=== PATIENT | female | born 1995 | race Caucasian/White ===

== ENCOUNTER 2017-10-12 14:00 | Outpatient (RCR) | payer BC | END 2017-12-01 | disposition home or self-care (01) | LOC: WSST | DX: J38.2 Nodules of vocal cords (principal) ==

== ENCOUNTER → 2023-10-02 | Outpatient (CLI) | payer OTHER | LOC: COL.LAB 12:02 | DX: O20.0 Threatened abortion (principal); Z3A.00 Weeks of gestation of pregnancy not specified ==